=== PATIENT | female | born 1980 | race Caucasian/White ===

== ENCOUNTER 2018-06-19 11:45 | Day surgery (SDC) | payer OTHER ==
--- NOTE | 2018-06-19 12:09 | EDPHY ---
H & P Stated Complaint: r sided abd pain since yesterday/ Time Seen by Provider: 06/19/18 11:58 HPI/ROS: CHIEF COMPLAINT: Abdominal pain since yesterday HISTORY OF PRESENT ILLNESS: 37-year-old female no history of abdominal surgeries complaining of 24 hr of right upper and lower quadrant abdominal pain. Increased formed stool frequency. Pain worse if she lays on her right side. No nausea or vomiting. No radiation of pain. No urinary abnormality. No Headache. No trauma. REVIEW OF SYSTEMS: 10 systems reviewed and negative with the exception of the elements mentioned in the history of present illness PAST MEDICAL & SURGICAL HISTORY: hypofibrinogenemia . IUD. SAB 1 SOCIAL HISTORY: . No alcohol or drug use PHYSICAL EXAM (Prior to examination, patient consented to physical exam, hands were washed and my usual and customary physical exam procedures followed) 1) GENERAL: Well-developed, well-nourished, alert and oriented. Appears to be in no acute distress. 2) HEAD: Normocephalic, atraumatic 3) HEENT: Pupils equal, round, reactive to light bilaterally. Sclera anicteric. Nasopharynx, oropharynx, clear, no lesions. Moist Mucous membranes. 4) NECK: Full range of motion, no meningeal signs. 5) LUNGS: Clear auscultation bilaterally, no wheezes, no rhonchi, no retractions. 6) HEART: Regular rate and rhythm, no murmur, no heave, no gallop. 7) ABDOMEN: No guarding, tender to palpation right upper and right lower quadrant as well as left lower quadrant. Slightly distended., 8) MUSCULOSKELETAL: Moving all extremities, no focal areas of tenderness, no obvious trauma. No peripheral edema or discoloration. 9) BACK: No CVA tenderness, no midline vertebral tenderness, no fluctuance, no step-off, no obvious trauma, no visual or palpable abnormality. 10) SKIN: No rash, no petechiae. 11) Psychiatric: Patient is oriented X 3, there is no agitation. DIFFERENTIAL DIAGNOSIS: My differential diagnosis includes, but is not limited to, acute appendicitis, acute cholecystitis, bowel obstruction, acute pancreatitis, ovarian torsion, ectopic , gastritis and urinary tract infection. The patient understands that this diagnosis is provisional and can never be 100% accurate. This is a partial list of diagnoses considered. These considerations are based on history, physical exam, past history and reassessment. - Personal History LMP (Females 10-55): IUD In Place Current Tetanus Diphtheria and Acellular Pertussis (TDAP): Yes - Medical/Surgical History Hx Asthma: No Hx Chronic Respiratory Disease: No Hx Diabetes: No Hx Cardiac Disease: No Hx Renal Disease: No Hx Cirrhosis: No Hx Alcoholism: No Hx HIV/AIDS: No Hx Splenectomy or Spleen Trauma: No Other PMH: hypofibrinogen - Social History Smoking Status: Never smoked Constitutional: Initial Vital Signs Temperature (C) 36.6 C 06/19/18 11:50 Heart Rate 79 06/19/18 11:50 Respiratory Rate 17 06/19/18 11:50 Blood Pressure 124/71 H 06/19/18 11:50 O2 Sat (%) 99 06/19/18 11:50 O2 Delivery Mode Room Air Allergies/Adverse Reactions: Sulfa (Sulfonamide Antibiotics) Allergy (Verified 06/19/18 11:49) Home Medications: Medication Instructions Recorded Multivitamins [Multivitamin (*)] 1 each PO DAILY 06/19/18 PARoxetine HCL [Paxil 10mg (*)] 10 mg PO DAILY 06/19/18 Medical Decision Making - Diagnostics Imaging Results: Imaging Impressions Abdomen Ultrasound 06/19/18 12:08 Impression: 1. No cholelithiasis or biliary ductal dilation. 2. Tiny amount of free fluid along the liver margin. Obstetrics Ultrasound 06/19/18 13:01 Impression: 1. Hemoperitoneum and left adnexal mass which may represent component of organized hematoma and possible ectopic . 2. Normal right ovary. 3. Well-positioned intrauterine device. No intrauterine gestational sac. Findings discussed with Emergency Department physician pediatric assistant, Joaquina Saravia on 06/19/2018, 13:54. Images reviewed myself ED Course/Re-evaluation: Care of patient under supervision of secondary supervising physician Dr Angel Das with whom I discussed case. 1:00 p.m.: Re-evaluation. Patient's test is positive. Discussed this with the patient. She was surprised. Her last menstrual period was 3 weeks ago described as normal. She has an IUD. Will obtain pelvic ultrasonography as well as check HCG level. Will obtain urinalysis she denies current vaginal bleeding. 2:00 p.m.: Discussed with the patient her ultrasound showing hemoperitoneum and left adnexal mass possibly consistent with ectopic . Her pain is currently controlled, she remains NPO since 10:30 this morning. 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 Patient indicates that during her last she she received cryoprecipitate 2:20 p.m.: Consultation with on-call OBGYN Dr. Chávez who comes to the ER to evaluate patient plan on more than likely surgical intervention. - Data Points Laboratory Results: Laboratory Results 06/19/18 12:00 06/19/18 12:00 06/19/18 06/19/18 06/19/18 13:35 13:00 12:11 WBC RBC Hgb Hct MCV MCH MCHC RDW Plt Count MPV Neut % (Auto) Lymph % (Auto) [place] % (Auto) Eos % (Auto) Baso % (Auto) Nucleat RBC Rel Count Absolute Neuts (auto) Absolute Lymphs (auto) Absolute Monos (auto) Absolute Eos (auto) Absolute Basos (auto) Absolute Nucleated RBC Immature Gran % Immature Gran # PT 14.5 SEC SEC (12.0-15.0) INR 1.11 (0.83-1.16) APTT 29.2 SEC SEC (23.0-38.0) Fibrinogen 116 mg/dL L mg/dL (214-456) Sodium Potassium Chloride Carbon Dioxide Anion Gap BUN Creatinine Estimated GFR Glucose Calcium Total Bilirubin Conjugated Bilirubin Unconjugated Bilirubin AST ALT Alkaline Phosphatase Total Protein Albumin Lipase Beta HCG, Qual Beta HCG, Quant 575.93 mIU/mL H mIU/mL (0.00-4.83) Urine Color YELLOW Urine Appearance CLEAR Urine pH 5.0 (5.0-7.5) Ur Specific [place] 1.021 (1.002-1.030) Urine Protein NEGATIVE (NEGATIVE) Urine Ketones NEGATIVE (NEGATIVE) Urine Blood NEGATIVE (NEGATIVE) Urine Nitrate NEGATIVE (NEGATIVE) Urine Bilirubin NEGATIVE (NEGATIVE) Urine Urobilinogen NEGATIVE EU EU (0.2-1.0) Ur Leukocyte Esterase NEGATIVE (NEGATIVE) Urine RBC 1-3 /hpf /hpf (0-3) Urine WBC 1-3 /hpf /hpf (0-3) Ur Epithelial Cells TRACE /lpf /lpf (NONE-1+) Urine Bacteria TRACE /hpf H /hpf (NONE SEEN) Urine Mucus 2+ /lpf H /lpf (NONE-1+) Urine Glucose NEGATIVE (NEGATIVE) 06/19/18 06/19/18 06/19/18 12:00 12:00 12:00 WBC 10.07 10^3/uL H 10^3/uL (3.80-9.50) RBC 4.09 10^6/uL L 10^6/uL (4.18-5.33) Hgb 12.6 g/dL g/dL (12.6-16.3) Hct 37.0 % L % (38.0-47.0) MCV 90.5 fL fL (81.5-99.8) MCH 30.8 pg pg (27.9-34.1) MCHC 34.1 g/dL g/dL (32.4-36.7) RDW 12.4 % % (11.5-15.2) Plt Count 231 10^3/uL 10^3/uL (150-400) MPV 9.2 fL fL (8.7-11.7) Neut % (Auto) 65.5 % % (39.3-74.2) Lymph % (Auto) 27.1 % % (15.0-45.0) [place] % (Auto) 6.1 % % (4.5-13.0) Eos % (Auto) 0.8 % % (0.6-7.6) Baso % (Auto) 0.3 % % (0.3-1.7) Nucleat RBC Rel Count 0.0 % % (0.0-0.2) Absolute Neuts (auto) 6.60 10^3/uL H 10^3/uL (1.70-6.50) Absolute Lymphs (auto) 2.73 10^3/uL 10^3/uL (1.00-3.00) Absolute Monos (auto) 0.61 10^3/uL 10^3/uL (0.30-0.80) Absolute Eos (auto) 0.08 10^3/uL 10^3/uL (0.03-0.40) Absolute Basos (auto) 0.03 10^3/uL 10^3/uL (0.02-0.10) Absolute Nucleated RBC 0.00 10^3/uL 10^3/uL (0-0.01) Immature Gran % 0.2 % % (0.0-1.1) Immature Gran # 0.02 10^3/uL 10^3/uL (0.00-0.10) PT INR APTT Fibrinogen Sodium 137 mEq/L mEq/L (135-145) Potassium 3.8 mEq/L mEq/L (3.5-5.2) Chloride 106 mEq/L mEq/L (97-110) Carbon Dioxide 24 mEq/l mEq/l (22-31) Anion Gap 7 mEq/L mEq/L (6-14) BUN 10 mg/dL mg/dL (7-23) Creatinine 0.7 mg/dL mg/dL (0.6-1.0) Estimated GFR > 60 Glucose 103 mg/dL H mg/dL (70-100) Calcium 9.0 mg/dL mg/dL (8.5-10.4) Total Bilirubin 1.3 mg/dL mg/dL (0.1-1.4) Conjugated Bilirubin 0.1 mg/dL mg/dL (0.0-0.5) Unconjugated Bilirubin 1.2 mg/dL H mg/dL (0.0-1.1) AST 15 IU/L IU/L (14-46) ALT 19 IU/L IU/L (9-52) Alkaline Phosphatase 49 IU/L IU/L (38-126) Total Protein 7.1 g/dL g/dL (6.3-8.2) Albumin 4.2 g/dL g/dL (3.5-5.0) Lipase 72 IU/L IU/L (23-300) Beta HCG, Qual POSITIVE Beta HCG, Quant Urine Color Urine Appearance Urine pH Ur Specific [place] Urine Protein Urine Ketones Urine Blood Urine Nitrate Urine Bilirubin Urine Urobilinogen Ur Leukocyte Esterase Urine RBC Urine WBC Ur Epithelial Cells Urine Bacteria Urine Mucus Urine Glucose Departure - Departure Disposition: To OP Cath/Surgery Clinical Impression: Ectopic Qualifiers: Location of ectopic : abdominal Intrauterine status: without intrauterine Qualified Code(s): O00.00 - Abdominal without intrauterine Condition: Fair
[2018-06-19 12:17] LABS: PLATELET COUNT 231 10^3/uL (150-400)
[2018-06-19 14:41] LABS: INR 1.11 (0.83-1.16); PROTIME(PATIENT) 14.5 SEC (12.0-15.0)
[2018-06-19 15:19] LABS: PLATELET COUNT 222 10^3/uL (150-400)
[2018-06-19] MEDS ORDERED: ceFAZolin 2 GM/DEXTROSE 100 ML IV ONE (16:01)
--- NOTE | 2018-06-19 16:01 | PDCONSULT ---
Airplane Pilot Note: I saw and evaluted Isela in the ER - Full H&P to follow. Briefly, 37 yo presented to the ER this afternoon with new abdominal pain, positive HCG ad US showing likely ruptured ectopic . She is hemodynamically stable, but does have a distended tender abdomen. Known h/o hypofibrinogenemia, level is 116 here in ER - I think prudent to move to OR will have blood bank work on fibrinogen concentrate/FFP to be ready if needed. To the OR for diagnostic laparoscopy and likely unilateral salpingectomy. ANGELA
--- NOTE | 2018-06-19 16:03 | PDGENHP ---
History and Physical - Chief Complaint Adbominal pain, suspected ruptured ectopic - History of Present Illness Isela is a very pleasant 37 yo (h/o placental abruption at 17 wks with first , complicated but PP hemorrhage, then 2 uncomplicated SVDs without PPH) who presented to the ER with increasing abdominal pain over the past 24 hrs. Pain started last night and home and now has bloating and worsening pain. No particular N/V, no diarrhea. She required D&C with her first 17 wk loss due to abruption. Did have hemorrhage with that and was ultimately diagnosed with hypofibrinogenemia. Level today in the ER is 116 which she says is actually high for her. Has a Paraguard IUD in place. She did get FFP/fibrinogen infusions prophylactically throughout both her pregnancies leading up to delivery. History Information - Allergies/Home Medication List Allergies/Adverse Reactions: Sulfa (Sulfonamide Antibiotics) Allergy (Verified 06/19/18 11:49) Home Medications: Multivitamins [Multivitamin (*)] 1 each PO DAILY 06/19/18 [Last Taken 06/18/18] PARoxetine HCL [Paxil 10mg (*)] 10 mg PO DAILY 06/19/18 [Last Taken 06/19/18 08: 00] I have personally reviewed and updated: family history, medical history, social history, surgical history Past Medical History: Hypofibrinogenemia - Surgical History Additional surgical history: D&C for IUFD at 17 wks, 2 's, no other abdominal surgeries - Family History Positive for: non-pertinent - Social History Smoking Status: Never smoked Alcohol Use: None Review of Systems Review of Systems: ROS: 10pt was reviewed & negative except for what was stated in HPI & below Physical Exam Physical Exam: Temp Pulse Resp BP Pulse Ox 36.8 C 64 16 122/68 H 96 06/19/18 15:58 06/19/18 15:58 06/19/18 15:58 06/19/18 15:58 06/19/18 15:58 Constitutional: appears nourished, uncomfortable Eyes: PERRL Ears, Nose, Mouth, Throat: moist mucous membranes Respiratory: no respiratory distress Gastrointestinal: tenderness (Mild diffuse), distension, No ascites, No guarding , No rebound Skin: warm, normal color Musculoskeletal: full muscle strength, normal joint ROM Neurologic: AAOx3 Psychiatric: interacting appropriately, not anxious Lab Data & Imaging Review 06/19/18 15:12 06/19/18 12:00 WBC 9.24 10^3/uL (3.80-9.50) 06/19/18 15:12 RBC 3.93 10^6/uL (4.18-5.33) L 06/19/18 15:12 Hgb 12.3 g/dL (12.6-16.3) L 06/19/18 15:12 Hct 36.1 % (38.0-47.0) L 06/19/18 15:12 MCV 91.9 fL (81.5-99.8) 06/19/18 15:12 MCH 31.3 pg (27.9-34.1) 06/19/18 15:12 MCHC 34.1 g/dL (32.4-36.7) 06/19/18 15:12 RDW 12.3 % (11.5-15.2) 06/19/18 15:12 Plt Count 222 10^3/uL (150-400) 06/19/18 15:12 MPV 9.0 fL (8.7-11.7) 06/19/18 15:12 Neut % (Auto) 61.7 % (39.3-74.2) 06/19/18 15:12 Lymph % (Auto) 30.2 % (15.0-45.0) 06/19/18 15:12 [place] % (Auto) 6.7 % (4.5-13.0) 06/19/18 15:12 Eos % (Auto) 0.9 % (0.6-7.6) 06/19/18 15:12 Baso % (Auto) 0.2 % (0.3-1.7) L 06/19/18 15:12 Nucleat RBC Rel Count 0.0 % (0.0-0.2) 06/19/18 15:12 Absolute Neuts (auto) 5.70 10^3/uL (1.70-6.50) 06/19/18 15:12 Absolute Lymphs (auto) 2.79 10^3/uL (1.00-3.00) 06/19/18 15:12 Absolute Monos (auto) 0.62 10^3/uL (0.30-0.80) 06/19/18 15:12 Absolute Eos (auto) 0.08 10^3/uL (0.03-0.40) 06/19/18 15:12 Absolute Basos (auto) 0.02 10^3/uL (0.02-0.10) 06/19/18 15:12 Absolute Nucleated RBC 0.00 10^3/uL (0-0.01) 06/19/18 15:12 Immature Gran % 0.3 % (0.0-1.1) 06/19/18 15:12 Immature Gran # 0.03 10^3/uL (0.00-0.10) 06/19/18 15:12 PT 14.5 SEC (12.0-15.0) 06/19/18 12:11 INR 1.11 (0.83-1.16) 06/19/18 12:11 APTT 29.2 SEC (23.0-38.0) 06/19/18 12:11 Fibrinogen 116 mg/dL (214-456) L 06/19/18 12:11 Sodium 137 mEq/L (135-145) 06/19/18 12:00 Potassium 3.8 mEq/L (3.5-5.2) 06/19/18 12:00 Chloride 106 mEq/L (97-110) 06/19/18 12:00 Carbon Dioxide 24 mEq/l (22-31) 06/19/18 12:00 Anion Gap 7 mEq/L (6-14) 06/19/18 12:00 BUN 10 mg/dL (7-23) 06/19/18 12:00 Creatinine 0.7 mg/dL (0.6-1.0) 06/19/18 12:00 Estimated GFR > 60 06/19/18 12:00 Glucose 103 mg/dL (70-100) H 06/19/18 12:00 Calcium 9.0 mg/dL (8.5-10.4) 06/19/18 12:00 Total Bilirubin 1.3 mg/dL (0.1-1.4) 06/19/18 12:00 Conjugated Bilirubin 0.1 mg/dL (0.0-0.5) 06/19/18 12:00 Unconjugated Bilirubin 1.2 mg/dL (0.0-1.1) H 06/19/18 12:00 AST 15 IU/L (14-46) 06/19/18 12:00 ALT 19 IU/L (9-52) 06/19/18 12:00 Alkaline Phosphatase 49 IU/L (38-126) 06/19/18 12:00 Total Protein 7.1 g/dL (6.3-8.2) 06/19/18 12:00 Albumin 4.2 g/dL (3.5-5.0) 06/19/18 12:00 Lipase 72 IU/L (23-300) 06/19/18 12:00 Beta HCG, Qual POSITIVE 06/19/18 12:00 Beta HCG, Quant 575.93 mIU/mL (0.00-4.83) H 06/19/18 13:00 Urine Color YELLOW 06/19/18 13:35 Urine Appearance CLEAR 06/19/18 13:35 Urine pH 5.0 (5.0-7.5) 06/19/18 13:35 Ur Specific [place] 1.021 (1.002-1.030) 06/19/18 13:35 Urine Protein NEGATIVE (NEGATIVE) 06/19/18 13:35 Urine Ketones NEGATIVE (NEGATIVE) 06/19/18 13:35 Urine Blood NEGATIVE (NEGATIVE) 06/19/18 13:35 Urine Nitrate NEGATIVE (NEGATIVE) 06/19/18 13:35 Urine Bilirubin NEGATIVE (NEGATIVE) 06/19/18 13:35 Urine Urobilinogen NEGATIVE EU (0.2-1.0) 06/19/18 13:35 Ur Leukocyte Esterase NEGATIVE (NEGATIVE) 06/19/18 13:35 Urine RBC 1-3 /hpf (0-3) 06/19/18 13:35 Urine WBC 1-3 /hpf (0-3) 06/19/18 13:35 Ur Epithelial Cells TRACE /lpf (NONE-1+) 06/19/18 13:35 Urine Bacteria TRACE /hpf (NONE SEEN) H 06/19/18 13:35 Urine Mucus 2+ /lpf (NONE-1+) H 06/19/18 13:35 Urine Glucose NEGATIVE (NEGATIVE) 06/19/18 13:35 Assessment & Plan Assessment: Suspected left ruptured ectopic . I had a long talk with pt and partner in ER - discussed differential, recommended OR for diagnostic laparoscopy and salpingostomy/salpingectomy. Will have blood bank work on FFP/fibrinogen concentrate if needed - discussed case with anesthesia and given that she seems to be bleeding and levels are > 100, will proceed to OR now. Routine preop orders, weight-based Ancef. Likely home this evening, but may stay overnight. ANGELA
[2018-06-19] MEDS ORDERED: LR 1,000 ML IV ONE (16:08)
[2018-06-19] MEDS ORDERED: BUPIVACAINE/EPI 0.25% 30 ML SDV ONE (16:09)
[2018-06-19] MEDS ORDERED: MIDAZOLAM 2 MG/2 ML VIAL IVP ONE (16:15)
[2018-06-19] MEDS ORDERED: CEFAZOLIN 2 GM/DEXTROSE/100 ML BAG IV ONE (16:16)
--- NOTE | 2018-06-19 16:17 | PDANEPAE ---
ANE History of Present Illness 37 year old with ectopic ANE Past Medical History - Pulmonary History Hx Oxygen in Use at Home: No Hx Sleep Apnea: No - Endocrine History Hx Diabetes: No ANE Review of Systems Review of systems is: negative Review of Systems: ANE Patient History - Allergies Allergies/Adverse Reactions: Sulfa (Sulfonamide Antibiotics) Allergy (Verified 06/19/18 11:49) - Home Medications Home medications: home medication list seen and reviewed Home Medications: Multivitamins [Multivitamin (*)] 1 each PO DAILY 06/19/18 [Last Taken 06/18/18] PARoxetine HCL [Paxil 10mg (*)] 10 mg PO DAILY 06/19/18 [Last Taken 06/19/18 08: 00] - NPO status NPO Since - Liquids (Date): 06/19/18 NPO Since - Liquids (Time): 11:00 NPO Since - Solids (Date): 06/19/18 NPO Since - Solids (Time): 10:30 - Anes Hx Anes Hx: no prior problems - Smoking Hx Smoking Status: Never smoked ANE Labs/Vital Signs - Labs Result Diagrams: 06/19/18 15:12 06/19/18 12:00 - Vital Signs Blood Pressure: 122/68 Heart Rate: 64 Respiratory Rate: 16 O2 Sat (%): 96 Height: 170.18 cm Weight: 58.967 kg ANE Physical Exam - Airway Neck exam: FROM Mallampati Score: Class 1 Mouth exam: normal dental/mouth exam - Pulmonary Pulmonary: no respiratory distress - Cardiovascular Cardiovascular: regular rate and rhythym - ASA Status ASA Status: II ANE Anesthesia Plan Anesthesia Plan: general endotracheal anesthesia
[2018-06-19] MEDS ORDERED: PROPOFOL 200 MG/20 ML VIAL ONE (16:32)
[2018-06-19] MEDS ORDERED: fentaNYL 100 MCG/2 ML INJ ONE ×2 (16:32→17:47)
[2018-06-19] MEDS ORDERED: ROCURONIUM 50 MG/5 ML VIAL ONE (16:32)
--- NOTE | 2018-06-19 18:18 | POSTOPPROG ---
Post Op Note Date of Operation: 06/19/18 Surgeon: Elmer Chávez Cadmium Plater: Juli Gordon Anesthesiologist: Dc Warm Anesthesia: GET(General Endotracheal) Pre-op Diagnosis: Abdominal pain, left adnexal mass, suspected ectopic Post-op Diagnosis: of unknown location, bleeding left ovarian cyst, hemoperitoneum Procedure: DxLS, evac hemo, cauterize L ov cyst, L salpingectomy, IUD removal, D &C Findings: Bleeding left ovarian cyst, large (480cc) hemoperitoneum Inf/Abcess present in the surg proc area at time of surgery?: No EBL: 480cc Complications: None Specimen(s): Left fallopian tube, Uterine curettings
[2018-06-19] MEDS ORDERED: NALOXONE HCL 0.4 MG/ML INJ IVP PRN (18:19)
[2018-06-19] MEDS ORDERED: ONDANSETRON 4 MG/2 ML VIAL IVP PRN (18:19)
[2018-06-19] MEDS ORDERED: fentaNYL 100 MCG/2 ML INJ IVP PRN (18:19)
[2018-06-19] MEDS ORDERED: PROMETHAZINE HCL 25 MG/ML INJ IVP PRN (18:19)
[2018-06-19] MEDS ORDERED: HYDROmorphONE/DILAUDID 2 MG/ML INJ IVP PRN (18:19)
--- NOTE | 2018-06-19 18:21 | POSTANESTH ---
Post Anesthetic Evaluation Cardiovascular Status: Normal, Stable Respiratory Status: Normal, Stable Level of Consciousness/Mental Status: Can Participate in Eval Pain Control: Adequate, Prn Tx Ordered Nausea/Vomiting Control: Adequate, Prn Tx Ordered Complications Possibly Related to Anesthesia: None Noted
--- NOTE | 2018-06-19 18:23 | SUROPNOTE ---
[facility] Operative Report - Surgery Date of Operation: 06/19/18 Surgeon: Elmer Chávez Geophysical Prospector: Juli Gordon Anesthesiologist: Dc Warm Anesthesia: GET(General Endotracheal) Pre-op Diagnosis: 1. Abdominal pain 2. Left adnexal mass 3. Hemopertoneum 4. Suspected ectopic Post-op Diagnosis: 1. of unknown location 2. Bleeding left ovarian cyst 3. Large hemoperitoneum Procedure: 1. Diagnostic laparoscopy 2. Evacuation of hemoperitoneum 3. Cauterization of left ovarian cyst 4. Left salpingectomy 5. Removal of IUD 6. Suction D&C Findings: Bleeding left ovarian cyst, large (480cc) hemoperitoneum Inf/Abcess present in the surg proc area at time of surgery?: No EBL: 480cc Complications: None Specimen(s): Left fallopian tube, Uterine curettings Technique: The patient was brought to the operating room where she was ergonomically positioned in low lithotomy position in Miguelangel stirrups. General anesthesia was established without issue. The arms were tucked at the patients side with care to not generate any pressure points. She was prepped and draped in standard fashion in low lithotomy after a time-out was performed. An [place] was placed on the cervix to assist with uterine manipulation and a varma catheter was placed under sterile conditions. Antibiotics were not indicated, and none were given. A 5mm vertical incision was made in the base of the umbilicus after injection of local anesthetic. The anterior abdominal wall was lifted as the Veress needle was carefully inserted into the abdomen at a 45% angle from vertical. Intraabdominal placement was confirmed with hanging drop test and low initial insufflation pressures. Once the abdomen was adequately insufflated with CO2 gas the Veress was removed and a 5mm Optiview non-bladed trocar was introduced into the abdomen without complication under direct visualization with the camera within the trocar. Once inside a brief scan of the abdomen revealed no injuries upon entry and also clear hemopertioneum. At this point 2 additional 5mm ports were placed in the bilateral lower quadrants after injection of local. Additional pictures were taken of intra-abdominal organs/structures as noted in findings. 480cc of blood and clot were suctioned from the abdomen. Once were were able to visualize the pelvis, it was clear there was a mass of adherent clot involving the left tube and left ovary. Once this was clarified it was noted that there was a bleeding cyst on the left ovary. This was cauterized with monopolar energy from the Ligasure Device. At this point I evaluated the left tube and although it didn't look completely normal, it also was not obvious to me that there was an ectopic . I made the decision to complete the left salpingectomy - and this was completed with the Ligasure device. The amputated tube was removed via a 5mm side port. Lastly, because I still did not know where this was located, I moved below to remove her IUD and completed a suction D&C. The IUD was removed by grasping strings with a ring forceps. The cervix was gently dilated to allow a 6mm curved suction curette and this was inserted and rotated within the cavity. I small banjo curette was used to complete a gentle curettage and the suction device was inserted for one additional pass. Following this all instruments were removed from below and those curettings were sent for path separate from the fallopian tube. Lastly we returned to the abdomen where the pelvis was copiously irrigated and complete hemostasis was noted. All trocars were removed , gas was allowed to escape the abdomen, and skin incisions closed with single subcuticular stitches of 4-0 monocryl and then covered with Dermabond. The pt was extubated uneventfully and taken to the PACU in stable condition. Lap, needle and instrument counts were announced as correct at the conclusion of the case. I was scrubbed and present for the entire procedure.
[2018-06-19] MEDS ORDERED: HYDROCODONE/APAP 5/325 TAB PO PRN ×2 (18:39→18:43)
[2018-06-19] MEDS ORDERED: oxyCODONE IR 5 MG TAB PO PRN ×2 (18:39→18:43)
[2018-06-19] MEDS ORDERED: HYDROCODONE/APAP 5/325 TAB ONE (18:43)
[2018-06-19 20:23] VITALS: BP 112/84
== END 2018-06-19 20:00 | disposition home or self-care (01) ==
LOC: UNDOADMOB 14:20 → FSGY 18:43
PROVIDERS: ATTEND Obstetrics & Gynecology
DX: O36.80X0 Pregnancy with inconclusive fetal viability, not applicable or unspecified (principal); K66.1 Hemoperitoneum; N83.202 Unspecified ovarian cyst, left side; Z97.5 Presence of (intrauterine) contraceptive device; Z88.2 Allergy status to sulfonamides
CPT/HCPCS: J0690; J2250; J2704; J3010